=== PATIENT | female | born 1940 | race Caucasian/White ===

== ENCOUNTER 2020-10-05 09:55 | Inpatient (IN) | payer OTHER, MEDICAID ==
[~2020-10-05] VITALS: Ht 165.1 cm; Wt 71.8 kg
--- NOTE | 2020-10-05 10:02 | NUR ---
PT BIBA FROM HOME FOR C/O N/V SINCE LAST NIGHT. PT LIVES WITH DAUGHTER, PER DAUGHTER PT HAS HAD N/V SINCE LAST NIGHT AND THEN THIS MORNING WITH EPIGASTRIC PAIN & LETHARGY. PT HAS HX OF DEMENTIA, PT AXOX2 WHICH IS BASELINE. PT RECEIVED COVID VACCINE, UNKNOWN WHICH ONE. 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 PT CHANGED INTO GOWN, MONITORS IN PLACE, CALL LIGHT WITHIN REACH.
[2020-10-05] MEDS ORDERED: ALLO300T PO (10:20)
[2020-10-05] MEDS ORDERED: TOLT2CAP22 PO (10:20)
[2020-10-05] MEDS ORDERED: ATOR20TA37 PO (10:20)
[2020-10-05] MEDS ORDERED: CARV3.1212 PO (10:20)
[2020-10-05] MEDS ORDERED: PANT40TA6 PO (10:20)
[2020-10-05] MEDS ORDERED: LISI-167 PO (10:20)
[2020-10-05] MEDS ORDERED: CITA20TA6 PO (10:20)
[2020-10-05] MEDS ORDERED: LEVO100T5 PO (10:20)
[2020-10-05] MEDS ORDERED: GABA600T7 PO (10:20)
--- NOTE | 2020-10-05 10:20 | NUR ---
erp at bs for eval
[2020-10-05] MEDS ORDERED: FAMOTIDINE 20 MG/2 ML ONE (10:23)
[2020-10-05] MEDS ORDERED: ONDANSETRON 2MG/ML, 2ML ONE (10:23)
[2020-10-05] MEDS ORDERED: SODIUM CHLORIDE FLUSH 10ML SYR IVF ONE (10:30)
[2020-10-05] MEDS ORDERED: FAMOTIDINE 20 MG/2 ML IVPush ONE (10:30)
[2020-10-05] MEDS ORDERED: SODIUM CHLORIDE 0.9% 1,000ML IVBOLUS ONE (10:30)
[2020-10-05] MEDS ORDERED: ONDANSETRON 2MG/ML, 2ML IVPush ONE (10:30)
--- NOTE | 2020-10-05 10:31 | NUR ---
PT MEDICATED PER EMAR
--- NOTE | 2020-10-05 10:47 | NUR ---
PT TOLERATED STRAIGHT CATH WELL. [place]
[2020-10-05 10:58] LABS: BASOPHILS % (AUTO) 0 % (0-1); EOSINOPHILS % (AUTO) 0 % (1-7); LYMPHOCYTES % (AUTO) 3 % (22-44); MEAN CORPUSCULAR HEMOGLOBIN 31.7 pg (27.0-34.8); MEAN CORPUSCULAR HGB CONC 34.1 g/dL (32.4-35.8); MEAN PLATELET VOLUME 7.6 fL (7.4-10.4); MONOCYTES % (AUTO) 3 % (2-9); NEUTROPHILS % (AUTO) 93 % (42-75); PLATELET COUNT 252 x10^3/uL (130-400); RED BLOOD COUNT 4.81 x10^6/uL (3.82-5.3); RED CELL DISTRIBUTION WIDTH 14.3 % (9.6-15.2)
[2020-10-05 11:10] LABS: ALBUMIN 3.5 g/dL (3.4-5.0); ANION GAP 9 mmol/L (5-15); CALCIUM 8.8 mg/dL (8.5-10.1); CHLORIDE 98 mmol/L (98-107)
[2020-10-05 11:14] LABS: ALANINE AMINOTRANSFERASE 303 U/L (12-78); ALKALINE PHOSPHATASE 186 U/L (45-117); BILIRUBIN,TOTAL 6.2 mg/dL (0.2-1.0); CREATININE 1.07 mg/dL (0.55-1.02); TOTAL PROTEIN 7.7 g/dL (6.4-8.2)
[2020-10-05 11:16] LABS: MICROSCOPIC AUTO
--- NOTE | 2020-10-05 11:19 | NUR ---
PT RESTING ON GURNEY, NADN/VSS. CALL LIGHT WITHIN REACH, BED IN LOWEST POSITION, BED RAILS UP X2. WCTM
--- NOTE | 2020-10-05 12:04 | NUR ---
(MADI CA, DAUGHTER & HAND CLOTH EXAMINER)
--- NOTE | 2020-10-05 12:08 | NUR ---
PT RESTING ON GURNEY, PT UPDATED ON POC. CALL LIGHT WITHIN REACH. NADN/VSS. BED IN LOWEST POSITION, BED RAILS UP X2
--- NOTE | 2020-10-05 12:15 | NUR ---
PT TO CT
--- NOTE | 2020-10-05 12:27 | NUR ---
PT BACK FROM CT
[2020-10-05] MEDS ORDERED: OMNIPAQUE 350 MG/ML, 100ML BOTTLE ONE (12:29)
--- NOTE | 2020-10-05 13:30 | NUR ---
PT RESTING ON [place], NADN/VSS. CALL LIGHT WITHIN REACH, BED IN LOWEST POSITION, BED RAILS UP X2. PT STATES NO NEEDS AT THIS TIME
[2020-10-05] MEDS ORDERED: KETOROLAC 30 MG/1 ML IV PRN (14:00)
[2020-10-05] MEDS ORDERED: MELATONIN 5 MG TABLET PO PRN (14:00)
[2020-10-05] MEDS ORDERED: ONDANSETRON 2MG/ML, 2ML IVPush PRN (14:00)
[2020-10-05] MEDS ORDERED: CEFTRIAXONE 1,000 MG in DEXTROSE 5% 50 ML IVPB ONE ×2 (14:00→15:00)
[2020-10-05] MEDS: LACTATED RINGERS 1,000 ML IV SCH (14:27)
[2020-10-05] MEDS ORDERED: SODIUM CHLORIDE FLUSH 10ML SYR IVF PRN (14:30)
--- NOTE | 2020-10-05 14:44 | NUR ---
Pt to be admitted to [facility], room 456. Report called to [facility].
[2020-10-05 15:07] VITALS: BP 118/56
[2020-10-05 15:13] VITALS: BP 118/56
[2020-10-05] MEDS: ENOXAPARIN 30 MG/0.3 ML SQ SCH (17:25)
[2020-10-05] MEDS: ACETAMINOPHEN 500 MG TABLET PO PRN (18:23)
[2020-10-05 19:11] VITALS: BP 138/78
[2020-10-05] MEDS: POLYETHYLENE GLYCOL 17 GM PACKET PO PRN (20:19)
[2020-10-05] MEDS: FAMOTIDINE 20 MG/2 ML IVPush SCH (20:19)
[2020-10-06] VITALS (7 sets, daily range): BP systolic 117–151; BP diastolic 72–78
[2020-10-06] MEDS: LACTATED RINGERS 1,000 ML IV SCH ×2 (02:23→16:07)
[2020-10-06 06:13] LABS: BASOPHILS % (AUTO) 1 % (0-1); EOSINOPHILS % (AUTO) 1 % (1-7); LYMPHOCYTES % (AUTO) 17 % (22-44); MEAN CORPUSCULAR HEMOGLOBIN 31.8 pg (27.0-34.8); MEAN CORPUSCULAR HGB CONC 34.3 g/dL (32.4-35.8); MEAN PLATELET VOLUME 7.6 fL (7.4-10.4); MONOCYTES % (AUTO) 6 % (2-9); NEUTROPHILS % (AUTO) 76 % (42-75); PLATELET COUNT 238 x10^3/uL (130-400); RED BLOOD COUNT 4.37 x10^6/uL (3.82-5.3); RED CELL DISTRIBUTION WIDTH 14.6 % (9.6-15.2)
[2020-10-06 06:36] LABS: ALBUMIN 2.9 g/dL (3.4-5.0); ANION GAP 9 mmol/L (5-15); CALCIUM 8.6 mg/dL (8.5-10.1); CHLORIDE 104 mmol/L (98-107); CREATININE 0.98 mg/dL (0.55-1.02)
[2020-10-06 06:39] LABS: ALANINE AMINOTRANSFERASE 244 U/L (12-78); ALKALINE PHOSPHATASE 193 U/L (45-117); BILIRUBIN,TOTAL 6.6 mg/dL (0.2-1.0); TOTAL PROTEIN 6.8 g/dL (6.4-8.2)
[2020-10-06 09:55] LABS: BILIRUBIN, DIRECT 4.6 mg/dL (0.1-0.2)
[2020-10-06] MEDS: FAMOTIDINE 20 MG/2 ML IVPush SCH (10:04)
[2020-10-06] MEDS: CEFTRIAXONE 2 GM in DEXTROSE 5% 50 ML IVPB SCH (14:15)
[2020-10-06] MEDS: ENOXAPARIN 30 MG/0.3 ML SQ SCH (16:07)
[2020-10-07 01:27] VITALS: BP 138/79
[2020-10-07] MEDS: LACTATED RINGERS 1,000 ML IV SCH ×2 (03:49→20:21)
[2020-10-07 07:07] VITALS: BP 157/82
[2020-10-07] MEDS: FAMOTIDINE 20 MG/2 ML IVPush SCH (09:04)
[2020-10-07 10:52] LABS: BASOPHILS % (AUTO) 1 % (0-1); EOSINOPHILS % (AUTO) 3 % (1-7); LYMPHOCYTES % (AUTO) 20 % (22-44); MEAN CORPUSCULAR HEMOGLOBIN 31.8 pg (27.0-34.8); MEAN CORPUSCULAR HGB CONC 34.2 g/dL (32.4-35.8); MEAN PLATELET VOLUME 7.5 fL (7.4-10.4); MONOCYTES % (AUTO) 7 % (2-9); NEUTROPHILS % (AUTO) 70 % (42-75); PLATELET COUNT 248 x10^3/uL (130-400); RED BLOOD COUNT 4.22 x10^6/uL (3.82-5.3); RED CELL DISTRIBUTION WIDTH 14.3 % (9.6-15.2)
[2020-10-07 10:57] LABS: ALBUMIN 2.7 g/dL (3.4-5.0); ANION GAP 9 mmol/L (5-15); CALCIUM 8.3 mg/dL (8.5-10.1); CHLORIDE 105 mmol/L (98-107)
[2020-10-07 11:00] LABS: ALANINE AMINOTRANSFERASE 141 U/L (12-78); ALKALINE PHOSPHATASE 168 U/L (45-117); BILIRUBIN,TOTAL 2.5 mg/dL (0.2-1.0); CREATININE 0.84 mg/dL (0.55-1.02); TOTAL PROTEIN 6.7 g/dL (6.4-8.2)
[2020-10-07] MEDS ORDERED: SINCALIDE (KINEVAC) 5 MCG ONE (11:57)
[2020-10-07] MEDS ORDERED: NITR100C PO ×2 (12:27)
[2020-10-07 12:58] VITALS: BP 165/81
[2020-10-07 13:06] VITALS: BP 141/75
[2020-10-07 13:08] VITALS: BP 144/81
[2020-10-07] MEDS: CEFTRIAXONE 2 GM in DEXTROSE 5% 50 ML IVPB SCH (14:18)
[2020-10-07] MEDS: ENOXAPARIN 40 MG/0.4 ML SQ SCH (16:00)
[2020-10-07 17:38] LABS: ANA SCREEN NEGATIVE (Negative)
[2020-10-07 19:55] VITALS: BP 143/84
[2020-10-08 01:47] VITALS: BP 153/82
[2020-10-08 05:41] LABS: ALBUMIN 2.6 g/dL (3.4-5.0); ANION GAP 8 mmol/L (5-15); CALCIUM 8.4 mg/dL (8.5-10.1); CHLORIDE 107 mmol/L (98-107)
[2020-10-08 05:46] LABS: ALANINE AMINOTRANSFERASE 102 U/L (12-78); ALKALINE PHOSPHATASE 149 U/L (45-117); BILIRUBIN,TOTAL 1.6 mg/dL (0.2-1.0); CREATININE 0.73 mg/dL (0.55-1.02); TOTAL PROTEIN 6.5 g/dL (6.4-8.2)
[2020-10-08 08:03] VITALS: BP 163/79
[2020-10-08] MEDS: FAMOTIDINE 20 MG/2 ML IVPush SCH (08:07)
[2020-10-08] MEDS: POLYETHYLENE GLYCOL 17 GM PACKET PO PRN (08:07)
[2020-10-08] MEDS: LACTATED RINGERS 1,000 ML IV SCH (10:20)
[2020-10-08 12:43] VITALS: BP 152/74
[2020-10-08] MEDS: CEFTRIAXONE 2 GM in DEXTROSE 5% 50 ML IVPB SCH (13:49)
[2020-10-08] MEDS: LEVOTHYROXINE 100 MCG TABLET PO SCH (13:52)
[2020-10-08] MEDS: CITALOPRAM 20 MG TABLET PO SCH (13:52)
[2020-10-08] MEDS: ENOXAPARIN 40 MG/0.4 ML SQ SCH (16:00)
[2020-10-08] MEDS: CARVEDILOL 3.125 MG TABLET PO SCH (17:49)
[2020-10-08 17:51] VITALS: BP 145/78
[2020-10-08 20:23] VITALS: BP 154/64
[2020-10-08] MEDS: GABAPENTIN 100 MG CAPSULE PO SCH (20:24)
[2020-10-08] MEDS: LISINOPRIL 10 MG TABLET PO SCH (20:24)
[2020-10-08] MEDS: TOLTERODINE LA 2MG CAP.ER.24H PO SCH (20:24)
[2020-10-09] VITALS (10 sets, daily range): BP systolic 124–174; BP diastolic 59–90
[2020-10-09] MEDS: LACTATED RINGERS 1,000 ML IV SCH ×2 (01:28→13:33)
[2020-10-09] MEDS: LEVOTHYROXINE 100 MCG TABLET PO SCH (05:21)
[2020-10-09] MEDS: CARVEDILOL 3.125 MG TABLET PO SCH ×2 (05:21→18:00)
[2020-10-09 05:22] LABS: BASOPHILS % (AUTO) 1 % (0-1); EOSINOPHILS % (AUTO) 4 % (1-7); LYMPHOCYTES % (AUTO) 32 % (22-44); MEAN CORPUSCULAR HEMOGLOBIN 31.9 pg (27.0-34.8); MEAN CORPUSCULAR HGB CONC 34.3 g/dL (32.4-35.8); MEAN PLATELET VOLUME 7.4 fL (7.4-10.4); MONOCYTES % (AUTO) 8 % (2-9); NEUTROPHILS % (AUTO) 55 % (42-75); PLATELET COUNT 252 x10^3/uL (130-400); RED BLOOD COUNT 4.07 x10^6/uL (3.82-5.3); RED CELL DISTRIBUTION WIDTH 14.3 % (9.6-15.2)
[2020-10-09 05:54] LABS: ALANINE AMINOTRANSFERASE 74 U/L (12-78); ALBUMIN 2.6 g/dL (3.4-5.0); ANION GAP 7 mmol/L (5-15); CALCIUM 8.6 mg/dL (8.5-10.1); CHLORIDE 107 mmol/L (98-107)
[2020-10-09 05:56] LABS: ALKALINE PHOSPHATASE 139 U/L (45-117); BILIRUBIN,TOTAL 1.3 mg/dL (0.2-1.0); CREATININE 0.66 mg/dL (0.55-1.02); TOTAL PROTEIN 6.5 g/dL (6.4-8.2)
[2020-10-09] MEDS: CITALOPRAM 20 MG TABLET PO SCH (08:33)
[2020-10-09] MEDS: FAMOTIDINE 20 MG/2 ML IVPush SCH (08:33)
[2020-10-09] MEDS: LISINOPRIL 10 MG TABLET PO SCH ×2 (08:33→20:49)
[2020-10-09] MEDS: CEFTRIAXONE 2 GM in DEXTROSE 5% 50 ML IVPB SCH (13:33)
[2020-10-09] MEDS: ENOXAPARIN 40 MG/0.4 ML SQ SCH (15:44)
[2020-10-09] MEDS: TOLTERODINE LA 2MG CAP.ER.24H PO SCH (20:48)
[2020-10-09] MEDS: GABAPENTIN 100 MG CAPSULE PO SCH (20:49)
[2020-10-10] VITALS (7 sets, daily range): BP systolic 161–189; BP diastolic 67–94
[2020-10-10] MEDS: CARVEDILOL 3.125 MG TABLET PO SCH ×2 (05:53→17:34)
[2020-10-10] MEDS: LEVOTHYROXINE 100 MCG TABLET PO SCH (05:53)
[2020-10-10 06:28] LABS: BASOPHILS % (AUTO) 0 % (0-1); EOSINOPHILS % (AUTO) 4 % (1-7); LYMPHOCYTES % (AUTO) 39 % (22-44); MEAN CORPUSCULAR HEMOGLOBIN 31.5 pg (27.0-34.8); MEAN PLATELET VOLUME 7.5 fL (7.4-10.4); MONOCYTES % (AUTO) 8 % (2-9); NEUTROPHILS % (AUTO) 49 % (42-75); PLATELET COUNT 253 x10^3/uL (130-400); RED BLOOD COUNT 4.15 x10^6/uL (3.82-5.3); RED CELL DISTRIBUTION WIDTH 14.3 % (9.6-15.2)
[2020-10-10 06:31] LABS: ALBUMIN 2.7 g/dL (3.4-5.0); ANION GAP 6 mmol/L (5-15); CALCIUM 8.3 mg/dL (8.5-10.1); CHLORIDE 108 mmol/L (98-107)
[2020-10-10 06:36] LABS: ALANINE AMINOTRANSFERASE 63 U/L (12-78); ALKALINE PHOSPHATASE 136 U/L (45-117); BILIRUBIN,TOTAL 1.1 mg/dL (0.2-1.0); CREATININE 0.72 mg/dL (0.55-1.02); TOTAL PROTEIN 6.7 g/dL (6.4-8.2)
[2020-10-10] MEDS ORDERED: EPINEPHRINE 1 MG/ML, 1ML ONE (07:25)
[2020-10-10] MEDS ORDERED: BUPIVACAINE/PF 0.5% ONE (07:25)
[2020-10-10] MEDS: FAMOTIDINE 20 MG/2 ML IVPush SCH (08:55)
[2020-10-10] MEDS: CITALOPRAM 20 MG TABLET PO SCH (08:56)
[2020-10-10] MEDS: LISINOPRIL 10 MG TABLET PO SCH ×2 (08:57→21:21)
[2020-10-10] MEDS ORDERED: OMNIPAQUE 350 MG/ML, 50 ML BOTTLE ONE (10:14)
[2020-10-10] MEDS ORDERED: FENTANYL PF 250 MCG/5ML ONE (10:42)
[2020-10-10] MEDS ORDERED: ROCURONIUM 10MG/ML,5ML ONE (10:43)
[2020-10-10] MEDS ORDERED: CEFAZOLIN 1,000 MG ONE (10:43)
[2020-10-10] MEDS ORDERED: PROPOFOL 10 MG/ML, 20ML ONE (10:43)
[2020-10-10] MEDS ORDERED: DEXAMETHASONE 4 MG/ML, 1ML ONE (10:50)
[2020-10-10] MEDS ORDERED: ONDANSETRON 2MG/ML, 2ML ONE (10:50)
[2020-10-10] MEDS ORDERED: hydrALAzine 20 MG/ML, 1ML ONE (10:50)
[2020-10-10] MEDS ORDERED: EPHEDRINE 50 MG/ML, 1ML ONE (11:09)
[2020-10-10] MEDS ORDERED: BUPIVACAINE/PF-EPI 0.5% 1:200K INFIL ONE (11:54)
[2020-10-10] MEDS ORDERED: SUGAMMADEX 200 MG/2 ML IVPush ONE (12:09)
[2020-10-10] MEDS ORDERED: FENTANYL PF 100 MCG/2ML IV PRN (12:30)
[2020-10-10] MEDS ORDERED: OXYcodone 5 MG/5 ML ORAL.SOL UDC PO PRN (12:30)
[2020-10-10] MEDS ORDERED: PROMETHAZINE 12.5 MG SUPP PR PRN (12:30)
[2020-10-10] MEDS ORDERED: DIPHENHYDRAMINE 50 MG/ML, 1ML IVPush PRN ×2 (12:30)
[2020-10-10] MEDS ORDERED: ONDANSETRON 2MG/ML, 2ML IVPush PRN (12:30)
[2020-10-10] MEDS ORDERED: ALBUTEROL SULFATE 2.5 MG/3 ML NPPB PRN (12:30)
[2020-10-10] MEDS ORDERED: MEPERIDINE/PF 25MG/0.5ML IVPush PRN (12:30)
[2020-10-10] MEDS ORDERED: PROMETHAZINE 25 MG/ML, 1ML IVPush PRN (12:30)
[2020-10-10] MEDS ORDERED: hydrALAzine 20 MG/ML, 1ML IV PRN (12:30)
[2020-10-10] MEDS ORDERED: EPHEDRINE 50 MG/ML, 1ML IVPush PRN (12:30)
[2020-10-10] MEDS ORDERED: HYDROmorphone 1 MG/ML, 1ML INJ IVPush PRN (12:30)
[2020-10-10] MEDS ORDERED: LABETALOL 5MG/ML, 20ML IV PRN (12:30)
[2020-10-10] MEDS: CEFTRIAXONE 2 GM in DEXTROSE 5% 50 ML IVPB SCH (14:00)
[2020-10-10] MEDS: ENOXAPARIN 40 MG/0.4 ML SQ SCH (17:34)
[2020-10-10] MEDS: ACETAMINOPHEN 500 MG TABLET PO PRN (17:34)
[2020-10-10] MEDS: LABETALOL 5MG/ML, 20ML IVPush PRN ×2 (19:34→22:26)
[2020-10-10] MEDS: GABAPENTIN 100 MG CAPSULE PO SCH (21:21)
[2020-10-10] MEDS: TOLTERODINE LA 2MG CAP.ER.24H PO SCH (21:21)
[2020-10-11] VITALS (10 sets, daily range): BP systolic 103–159; BP diastolic 58–82
[2020-10-11 05:42] LABS: BASOPHILS % (AUTO) 1 % (0-1); EOSINOPHILS % (AUTO) 0 % (1-7); LYMPHOCYTES % (AUTO) 13 % (22-44); MEAN CORPUSCULAR HEMOGLOBIN 32.1 pg (27.0-34.8); MEAN CORPUSCULAR HGB CONC 34.9 g/dL (32.4-35.8); MEAN PLATELET VOLUME 8.1 fL (7.4-10.4); MONOCYTES % (AUTO) 6 % (2-9); NEUTROPHILS % (AUTO) 80 % (42-75); PLATELET COUNT 248 x10^3/uL (130-400); RED BLOOD COUNT 4.71 x10^6/uL (3.82-5.3); RED CELL DISTRIBUTION WIDTH 14.3 % (9.6-15.2)
[2020-10-11 05:48] LABS: CHLORIDE 100 mmol/L (98-107)
[2020-10-11 06:01] LABS: ANION GAP 9 mmol/L (5-15); CALCIUM 8.2 mg/dL (8.5-10.1)
[2020-10-11 06:02] LABS: ALANINE AMINOTRANSFERASE 88 U/L (12-78); ALBUMIN 2.7 g/dL (3.4-5.0); ALKALINE PHOSPHATASE 147 U/L (45-117); BILIRUBIN,TOTAL 1.1 mg/dL (0.2-1.0); TOTAL PROTEIN 7.1 g/dL (6.4-8.2)
[2020-10-11] MEDS: ACETAMINOPHEN 500 MG TABLET PO PRN (06:13)
[2020-10-11] MEDS: CARVEDILOL 3.125 MG TABLET PO SCH ×2 (06:13→17:22)
[2020-10-11] MEDS: LEVOTHYROXINE 100 MCG TABLET PO SCH (06:13)
[2020-10-11] MEDS: CITALOPRAM 20 MG TABLET PO SCH (08:27)
[2020-10-11] MEDS: FAMOTIDINE 20 MG/2 ML IVPush SCH (08:27)
[2020-10-11] MEDS: LISINOPRIL 10 MG TABLET PO SCH ×2 (08:27→20:51)
[2020-10-11] MEDS ORDERED: ONDANSETRON 2MG/ML, 2ML IVPush ONE (09:30)
[2020-10-11] MEDS: CEFTRIAXONE 2 GM in DEXTROSE 5% 50 ML IVPB SCH (13:43)
[2020-10-11] MEDS: ENOXAPARIN 40 MG/0.4 ML SQ SCH (16:27)
[2020-10-11] MEDS: TOLTERODINE LA 2MG CAP.ER.24H PO SCH (20:51)
[2020-10-11] MEDS: GABAPENTIN 100 MG CAPSULE PO SCH (20:51)
[2020-10-12 00:53] VITALS: BP 125/64
[2020-10-12 06:05] LABS: BASOPHILS % (AUTO) 1 % (0-1); EOSINOPHILS % (AUTO) 2 % (1-7); LYMPHOCYTES % (AUTO) 31 % (22-44); MEAN CORPUSCULAR HGB CONC 34.2 g/dL (32.4-35.8); MEAN PLATELET VOLUME 7.6 fL (7.4-10.4); MONOCYTES % (AUTO) 6 % (2-9); NEUTROPHILS % (AUTO) 60 % (42-75); PLATELET COUNT 292 x10^3/uL (130-400); RED BLOOD COUNT 4.11 x10^6/uL (3.82-5.3); RED CELL DISTRIBUTION WIDTH 14.3 % (9.6-15.2)
[2020-10-12 06:21] LABS: ALBUMIN 2.5 g/dL (3.4-5.0); ANION GAP 5 mmol/L (5-15); CALCIUM 8.2 mg/dL (8.5-10.1); CHLORIDE 104 mmol/L (98-107)
[2020-10-12] MEDS: CARVEDILOL 3.125 MG TABLET PO SCH (06:21)
[2020-10-12] MEDS: LEVOTHYROXINE 100 MCG TABLET PO SCH (06:21)
[2020-10-12 06:25] LABS: ALANINE AMINOTRANSFERASE 67 U/L (12-78); ALKALINE PHOSPHATASE 117 U/L (45-117); BILIRUBIN,TOTAL 0.8 mg/dL (0.2-1.0); CREATININE 0.81 mg/dL (0.55-1.02); TOTAL PROTEIN 6.5 g/dL (6.4-8.2)
[2020-10-12 07:47] VITALS: BP 139/70
[2020-10-12 08:25] VITALS: BP 142/77
[2020-10-12 08:28] VITALS: BP 139/74
[2020-10-12 08:32] VITALS: BP 138/72
[2020-10-12] MEDS: FAMOTIDINE 20 MG/2 ML IVPush SCH (08:33)
[2020-10-12] MEDS: CITALOPRAM 20 MG TABLET PO SCH (08:33)
[2020-10-12] MEDS: LISINOPRIL 10 MG TABLET PO SCH (08:33)
[2020-10-12] MEDS ORDERED: ONDA4TAB7 PO (10:26)
[2020-10-12] MEDS: POLYETHYLENE GLYCOL 17 GM PACKET PO PRN (11:40)
[2020-10-12] MEDS: ACETAMINOPHEN 500 MG TABLET PO PRN (12:26)
[2020-10-12 13:12] VITALS: BP 139/68
[2020-10-12] MEDS ORDERED: CEFTRIAXONE 2 GM in DEXTROSE 5% 50 ML IVPB SCH (14:00)
== END 2020-10-12 16:24 | disposition home or self-care (01) | DRG 418 ==
LOC: ED 13:58 → EDIP 14:27 → 4NE 14:57
PROVIDERS: ADMIT Internal Medicine; ATTEND Family Medicine
PROC: 0FT44ZZ Resection of Gallbladder, Percutaneous Endoscopic Approach (ICD-10-PCS; principal; 2020-10-05)
PROC: 0T9B70Z Drainage of Bladder with Drainage Device, Via Natural or Artificial Opening (ICD-10-PCS; 2020-10-05)
PROC: 0FC98ZZ Extirpation of Matter from Common Bile Duct, Via Natural or Artificial Opening Endoscopic (ICD-10-PCS; 2020-10-05)
DX: K80.42 Calculus of bile duct with acute cholecystitis without obstruction (principal); N30.00 Acute cystitis without hematuria; G93.40 Encephalopathy, unspecified; F05 Delirium due to known physiological condition; E46 Unspecified protein-calorie malnutrition; B17.9 Acute viral hepatitis, unspecified; E44.1 Mild protein-calorie malnutrition; F02.80 Dementia in other diseases classified elsewhere, unspecified severity, without behavioral disturbance, psychotic disturbance, mood disturbance, and anxiety; K21.9 Gastro-esophageal reflux disease without esophagitis; E03.9 Hypothyroidism, unspecified; M10.9 Gout, unspecified; E78.5 Hyperlipidemia, unspecified; F32.9 Major depressive disorder, single episode, unspecified; Z96.641 Presence of right artificial hip joint; Z20.822 Contact with and (suspected) exposure to COVID-19; K76.89 Other specified diseases of liver; K82.8 Other specified diseases of gallbladder; B96.20 Unspecified Escherichia coli [E. coli] as the cause of diseases classified elsewhere; E61.1 Iron deficiency; G30.9 Alzheimer's disease, unspecified; E11.9 Type 2 diabetes mellitus without complications; I10 Essential (primary) hypertension; K66.0 Peritoneal adhesions (postprocedural) (postinfection); Z88.5 Allergy status to narcotic agent; Z88.0 Allergy status to penicillin; Z88.2 Allergy status to sulfonamides; Z79.899 Other long term (current) drug therapy
CPT/HCPCS: 36415; 74177; 74181; 74328; 76700; 76705; 78227; 80053; 80074; 81001; 82103; 82248; 82390; 82728; 82784; 82977; 83516; 83540; 83550; 83690; 83735; 84443; 85025; 86038; 87077; 87086; 87186; 87635; 88304; 93005; 96361; 96374; 96375; G0378; J0171; J0690; J0696; J1100; J1650; J2405; J2704; J3010; Q9967; A9537; C1769; J0360; J2805; J7030; J7120